=== PATIENT | male | born 1960 | race Caucasian/White ===

== ENCOUNTER 2020-06-04 09:21 | Outpatient (CLI) | payer BC ==
[2020-06-04 11:26] LABS: BASOPHILS # (AUTO) 0.1 /CMM (0.0-0.2); BASOPHILS % (AUTO) 1.1 % (0.0-2.0); EOSINOPHILS % (AUTO) 3.9 % (0.0-6.0); HEMATOCRIT 44 % (39-51); HEMOGLOBIN 14.6 g/dL (13.5-17.5); LYMPHOCYTES # (AUTO) 1.6 /CMM (0.8-4.8); LYMPHOCYTES % (AUTO) 33.4 % (20.0-44.0); MEAN CORPUSCULAR HGB CONC 33 g/dl (31.0-36.0); MEAN CORPUSCULAR VOLUME 89 fL (80-96); MONOCYTES # (AUTO) 0.4 /CMM (0.1-1.30); MONOCYTES % (AUTO) 8.9 % (2.0-12.0); NEUTROPHILS # (AUTO) 2.5 /CMM (1.8-8.9); NEUTROPHILS % (AUTO) 52.7 % (43.0-81.0); PLATELET COUNT (AUTO) 146 /CMM (150-450); RED BLOOD CELL COUNT(AUTO) 4.97 MIL/uL (4.5-6.0); WHITE BLOOD COUNT (AUTO) 4.8 K/uL (4.3-11.0)
[2020-06-04 12:14] LABS: ALBUMIN 3.8 g/dL (3.4-5.0); BILIRUBIN,TOTAL 0.7 mg/dL (0.2-1.0); CALCIUM, SERUM 9.3 mg/dL (8.5-10.1); CREATININE 0.8 mg/dL (0.6-1.3); POTASSIUM 4.1 mmol/L (3.5-5.1); TOTAL PROTEIN, SERUM 7.4 g/dL (6.4-8.2)
[2020-06-04 12:22] LABS: THYROID STIMULATING HORMONE 2.682 uIU/mL (0.358-3.74)
== END 2020-06-04 23:59 | disposition home or self-care (01) ==
LOC: LAB 09:21
PROVIDERS: ATTEND Family Medicine
DX: E78.2 Mixed hyperlipidemia (principal); E03.9 Hypothyroidism, unspecified; R12 Heartburn; Z79.899 Other long term (current) drug therapy
CPT/HCPCS: 36415; 80053-TC; 80061-TC; 82306; 84439-TC; 84443-TC; 84481; 85025-TC

== ENCOUNTER → 2020-06-27 | Outpatient (CLI) | payer BC | END | disposition home or self-care (01) | LOC: RAD 10:16 | PROVIDERS: ATTEND Family Medicine | DX: M17.12 Unilateral primary osteoarthritis, left knee (principal); M25.462 Effusion, left knee; M25.762 Osteophyte, left knee | CPT/HCPCS: 73564-TC ==

== ENCOUNTER 2020-07-01 11:04 | Outpatient (CLI) | payer BC | END 2020-07-01 23:59 | disposition home or self-care (01) | LOC: US 11:04 | PROVIDERS: ATTEND Family Medicine | DX: E04.1 Nontoxic single thyroid nodule (principal) | CPT/HCPCS: 76536-TC ==

== ENCOUNTER 2020-07-23 08:35 | Outpatient (CLI) | payer BC | END 2020-07-23 23:59 | disposition home or self-care (01) | LOC: CARD 08:35 | PROVIDERS: ATTEND Family Medicine | DX: M17.12 Unilateral primary osteoarthritis, left knee (principal) | CPT/HCPCS: 73590-TC; 93971-TC ==

== ENCOUNTER 2020-10-28 09:30 | Outpatient (CLI) | payer BC ==
[2020-10-28 10:28] LABS: BILIRUBIN,URINE NEGATIVE (NEGATIVE); BLOOD, URINE NEGATIVE Ery/uL (NEGATIVE); COLOR,URINE YELLOW (YELLOW); LEUKOCYTE ESTERASE ,URINE NEGATIVE (NEGATIVE); NITRITE, URINE NEGATIVE (NEGATIVE); PH,URINE 6.5 (5.0-8.0); PROTEIN,URINE NEGATIVE (NEGATIVE); UGLUCOSE NEGATIVE (NEGATIVE); UROBILINOGEN,URINE 0.2 EU/dL (0.2)
[2020-10-28 10:36] LABS: BASOPHILS # (AUTO) 0.1 /CMM (0.0-0.2); BASOPHILS % (AUTO) 2.5 % (0.0-2.0); EOSINOPHILS % (AUTO) 4.5 % (0.0-6.0); HEMATOCRIT 47 % (39-51); HEMOGLOBIN 15.6 g/dL (13.5-17.5); LYMPHOCYTES # (AUTO) 1.3 /CMM (0.8-4.8); LYMPHOCYTES % (AUTO) 32.9 % (20.0-44.0); MEAN CORPUSCULAR HGB CONC 33 g/dl (31.0-36.0); MEAN CORPUSCULAR VOLUME 90 fL (80-96); MONOCYTES # (AUTO) 0.4 /CMM (0.1-1.30); MONOCYTES % (AUTO) 9.2 % (2.0-12.0); NEUTROPHILS % (AUTO) 50.9 % (43.0-81.0); PLATELET COUNT (AUTO) 167 /CMM (150-450); RED BLOOD CELL COUNT(AUTO) 5.21 MIL/uL (4.5-6.0); WHITE BLOOD COUNT (AUTO) 3.9 K/uL (4.3-11.0)
[2020-10-28 10:40] LABS: ALBUMIN 3.8 g/dL (3.4-5.0); BILIRUBIN,TOTAL 0.6 mg/dL (0.2-1.0); CREATININE 0.9 mg/dL (0.6-1.3); POTASSIUM 3.8 mmol/L (3.5-5.1); TOTAL PROTEIN, SERUM 7.8 g/dL (6.4-8.2)
[2020-10-28 10:58] LABS: PROSTATE SPECIFIC ANTIGEN SCR 0.7 ng/mL (0.00-4.00); THYROID STIMULATING HORMONE 2.861 uIU/mL (0.358-3.74)
== END 2020-10-28 23:59 | disposition home or self-care (01) ==
LOC: CT 09:30
PROVIDERS: ATTEND Family Medicine
DX: E55.9 Vitamin D deficiency, unspecified (principal); R59.0 Localized enlarged lymph nodes; J92.9 Pleural plaque without asbestos; Z00.01 Encounter for general adult medical examination with abnormal findings; Z79.899 Other long term (current) drug therapy; Z95.0 Presence of cardiac pacemaker
CPT/HCPCS: 36415; 71250-TC; 80053-TC; 80061-TC; 82306; 84153-TC; 84439-TC; 84443-TC; 85025-TC

== ENCOUNTER 2021-04-25 08:37 | Emergency (ER) | payer BC, OTHER ==
[~2021-04-25] VITALS: Ht 182.9 cm; Wt 61.2 kg
[2021-04-25 11:59] VITALS: BP 130/61
== END 2021-04-25 12:00 | disposition home or self-care (01) ==
LOC: ER 08:46
DX: R05 Cough (principal); Z20.822 Contact with and (suspected) exposure to COVID-19; R91.8 Other nonspecific abnormal finding of lung field; I51.7 Cardiomegaly
CPT/HCPCS: 71045; 87426; 99284; C9803

== ENCOUNTER 2021-12-15 10:05 | Outpatient (CLI) | payer BC ==
[2021-12-15 11:28] LABS: CALCIUM, SERUM 8.7 mg/dL (8.5-10.1); CREATININE 0.8 mg/dL (0.6-1.3)
[2021-12-15] MEDS ORDERED: CT SWABBABLE VALVE TRANS SET 1 EA INFUS.SET MC ONE (11:33)
[2021-12-15] MEDS ORDERED: IV NS 0.9% 250 ML IV ONE (11:33)
[2021-12-15] MEDS ORDERED: IOHEXOL-300 100 ML VIAL IV ONE (11:33)
== END 2021-12-15 23:59 | disposition home or self-care (01) ==
LOC: CT 10:05
DX: I25.10 Atherosclerotic heart disease of native coronary artery without angina pectoris (principal); D86.9 Sarcoidosis, unspecified; Z95.0 Presence of cardiac pacemaker
CPT/HCPCS: 36415; 71260; 80048; J7050; Q9967

== ENCOUNTER 2021-12-15 13:30 | Emergency (ER) | payer BC ==
[~2021-12-15] VITALS: Ht 182.9 cm; Wt 73.9 kg
[2021-12-15 13:50] VITALS: BP 115/70
--- NOTE | 2021-12-15 13:50 | NUR ---
LEFT ANKLE/FOOT PAIN STARTED WHILE PLAYING [employer] LAST NIGHT
== END 2021-12-15 15:29 | disposition home or self-care (01) ==
LOC: ER 13:30
DX: S93.692A Other sprain of left foot, initial encounter (principal); Z90.89 Acquired absence of other organs; Z98.890 Other specified postprocedural states; X50.1XXA Overexertion from prolonged static or awkward postures, initial encounter; Y93.68 Activity, volleyball (beach) (court); Y92.39 Other specified sports and athletic area as the place of occurrence of the external cause; Y99.8 Other external cause status
CPT/HCPCS: 73610-TC; 73630-TC

== ENCOUNTER 2022-06-21 10:44 | Outpatient (CLI) | payer BC ==
[2022-06-21] MEDS ORDERED: UREA 10% -AHA 4% CREAM 57 GM TUBE ONE (11:34)
== END 2022-06-21 23:59 | disposition home or self-care (01) ==
LOC: WOU 10:44
PROVIDERS: ATTEND Podiatrist Foot & Ankle Surgery
DX: L60.3 Nail dystrophy (principal); L84 Corns and callosities; R26.2 Difficulty in walking, not elsewhere classified; M79.672 Pain in left foot; M79.671 Pain in right foot; R73.03 Prediabetes; Z87.891 Personal history of nicotine dependence
CPT/HCPCS: G0463

== ENCOUNTER 2023-03-25 11:59 | Outpatient (CLI) | payer BC ==
[2023-03-25 12:42] LABS: BASOPHILS % (AUTO) 0.8 % (0.0-2.0); EOSINOPHILS % (AUTO) 2.7 % (0.0-6.0); HEMATOCRIT 45 % (39-51); HEMOGLOBIN 14.8 g/dL (13.5-17.5); LYMPHOCYTES % (AUTO) 33.2 % (20.0-44.0); MEAN CORPUSCULAR HGB CONC 33 g/dl (31.0-36.0); MEAN CORPUSCULAR VOLUME 88 fL (80-96); MONOCYTES # (AUTO) 0.5 K/uL (0.1-1.30); MONOCYTES % (AUTO) 8.2 % (2.0-12.0); NEUTROPHILS # (AUTO) 3.3 K/uL (1.8-8.9); NEUTROPHILS % (AUTO) 55.1 % (43.0-81.0); PLATELET COUNT (AUTO) 212 K/uL (150-450); RED BLOOD CELL COUNT(AUTO) 5.11 MIL/uL (4.5-6.0)
[2023-03-25 12:43] LABS: BILIRUBIN,URINE NEGATIVE (NEGATIVE); COLOR,URINE YELLOW (YELLOW); LEUKOCYTE ESTERASE ,URINE NEGATIVE (NEGATIVE); NITRITE, URINE NEGATIVE (NEGATIVE); PROTEIN,URINE NEGATIVE (NEGATIVE); UGLUCOSE NEGATIVE (NEGATIVE); UROBILINOGEN,URINE 0.2 EU/dL (0.2)
[2023-03-25 13:23] LABS: BACTERIA,URINE None seen /HPF (None Seen); SQUAMOUS EPITHELIAL CELL,UR None Seen /HPF (None Seen); WBC,URINE NONE SEEN /HPF (0-3)
== END 2023-03-25 23:59 | disposition home or self-care (01) ==
LOC: LAB 11:59
PROVIDERS: ATTEND Surgery
DX: Z01.812 Encounter for preprocedural laboratory examination (principal); Z20.822 Contact with and (suspected) exposure to COVID-19; R31.9 Hematuria, unspecified
CPT/HCPCS: 85025; 87086; 81001; 36415; U0003; C9803

== ENCOUNTER 2023-03-30 06:12 | Day surgery (SDC) | payer BC ==
[2023-03-30] MEDS ORDERED: ANESTHESIA TRAY IN PYXIS 1 EA TRAY MC ONE (06:46)
[2023-03-30 06:55] LABS: BASOPHILS % (AUTO) 0.7 % (0.0-2.0); EOSINOPHILS % (AUTO) 2.9 % (0.0-6.0); HEMATOCRIT 44 % (39-51); HEMOGLOBIN 14.4 g/dL (13.5-17.5); LYMPHOCYTES # (AUTO) 1.3 K/uL (0.8-4.8); LYMPHOCYTES % (AUTO) 24.1 % (20.0-44.0); MEAN CORPUSCULAR HGB CONC 33 g/dl (31.0-36.0); MEAN CORPUSCULAR VOLUME 88 fL (80-96); MONOCYTES # (AUTO) 0.4 K/uL (0.1-1.30); MONOCYTES % (AUTO) 8.1 % (2.0-12.0); NEUTROPHILS # (AUTO) 3.6 K/uL (1.8-8.9); NEUTROPHILS % (AUTO) 64.2 % (43.0-81.0); PLATELET COUNT (AUTO) 197 K/uL (150-450); RED BLOOD CELL COUNT(AUTO) 4.98 MIL/uL (4.5-6.0); WHITE BLOOD COUNT (AUTO) 5.6 K/uL (4.3-11.0)
[2023-03-30 07:48] LABS: ALBUMIN 3.4 g/dL (3.4-5.0); BILIRUBIN,TOTAL 0.6 mg/dL (0.2-1.0); CALCIUM, SERUM 9.2 mg/dL (8.5-10.1); CREATININE 0.8 mg/dL (0.6-1.3); POTASSIUM 4.2 mmol/L (3.5-5.1); TOTAL PROTEIN, SERUM 7.2 g/dL (6.4-8.2)
== END 2023-03-30 09:45 | disposition home or self-care (01) ==
LOC: DS 06:12
PROVIDERS: ATTEND Surgery
DX: R19.4 Change in bowel habit (principal); K31.7 Polyp of stomach and duodenum; K44.9 Diaphragmatic hernia without obstruction or gangrene; K21.9 Gastro-esophageal reflux disease without esophagitis; Z98.890 Other specified postprocedural states; Z79.899 Other long term (current) drug therapy
CPT/HCPCS: 45378; 43239; 71045; 88342; 85025; 36415; 80053; 88312; 88305; 93005; J2704; J3490

== ENCOUNTER 2023-04-26 13:02 | Outpatient (CLI) | payer BC ==
[2023-04-26 13:43] LABS: CALCIUM, SERUM 9.2 mg/dL (8.5-10.1); CREATININE 0.8 mg/dL (0.6-1.3); POTASSIUM 4.2 mmol/L (3.5-5.1)
== END 2023-04-26 23:59 | disposition home or self-care (01) ==
LOC: LAB 13:02
PROVIDERS: ATTEND Family Medicine
DX: R31.9 Hematuria, unspecified (principal)
CPT/HCPCS: 36415; 80048-TC

== ENCOUNTER 2023-04-29 08:59 | Outpatient (CLI) | payer BC ==
[2023-04-29] MEDS ORDERED: IOHEXOL-300 100 ML VIAL IV ONE (09:17)
[2023-04-29] MEDS ORDERED: IV NS 0.9% 250 ML IV ONE (09:17)
== END 2023-04-29 23:59 | disposition home or self-care (01) ==
LOC: CT 08:59
PROVIDERS: ATTEND Family Medicine
DX: N28.1 Cyst of kidney, acquired (principal); R31.9 Hematuria, unspecified; M51.37 Other intervertebral disc degeneration, lumbosacral region; I70.0 Atherosclerosis of aorta; R10.9 Unspecified abdominal pain
CPT/HCPCS: 74177; J7050; Q9967

== ENCOUNTER 2023-12-29 12:46 | Emergency (ER) | payer BC ==
[~2023-12-29] VITALS: Ht 182.9 cm; Wt 74.8 kg
[2023-12-29 13:24] LABS: BASOPHILS % (AUTO) 0.7 % (0.0-2.0); EOSINOPHILS # (AUTO) 0.2 K/uL (0.0-0.7); HEMATOCRIT 44 % (39-51); HEMOGLOBIN 14.7 g/dL (13.5-17.5); LYMPHOCYTES # (AUTO) 1.6 K/uL (0.8-4.8); LYMPHOCYTES % (AUTO) 30.7 % (20.0-44.0); MEAN CORPUSCULAR HEMOGLOBIN 30 PG (26.0-33.0); MEAN CORPUSCULAR HGB CONC 34 g/dl (31.0-36.0); MEAN CORPUSCULAR VOLUME 89 fL (80-96); MONOCYTES # (AUTO) 0.5 K/uL (0.1-1.30); MONOCYTES % (AUTO) 9.5 % (2.0-12.0); NEUTROPHILS # (AUTO) 2.8 K/uL (1.8-8.9); NEUTROPHILS % (AUTO) 55.1 % (43.0-81.0); PLATELET COUNT (AUTO) 167 K/uL (150-450); RED CELL DISTRIBUTION WIDTH 13.2 % (11.5-15.0); WHITE BLOOD COUNT (AUTO) 5.1 K/uL (4.3-11.0)
[2023-12-29 13:35] LABS: CALCIUM, SERUM 9.6 mg/dL (8.5-10.1); CARBON DIOXIDE 27 mmol/L (21-32); CHLORIDE 103 mmol/L (98-107); CREATININE 0.9 mg/dL (0.6-1.3); GLUCOSE 56 mg/dL (74-106); POTASSIUM 3.8 mmol/L (3.5-5.1); SODIUM SERUM 139 mmol/L (136-145); UREA NITROGEN, BLOOD 16 mg/dL (7-18)
[2023-12-29] MEDS ORDERED: LIDOCAINE VISCOUS 2% UD 15 ML UDC ONE (13:39)
[2023-12-29] MEDS ORDERED: MAG HYDROX/AL HYDROX/SIMETH 30 ML UDC ONE (13:39)
[2023-12-29] MEDS ORDERED: PANTOPRAZOLE 40 MG VIAL ONE (13:39)
[2023-12-29 13:47] LABS: ALANINE AMINOTRANSFERASE 26 U/L (12-78); ALBUMIN 3.7 g/dL (3.4-5.0); ALKALINE PHOSPHATASE 97 U/L (46-116); ASPARTATE AMINOTRANSFERASE 19 U/L (15-37); BILIRUBIN,DIRECT 0.1 mg/dL (0.0-0.2); BILIRUBIN,TOTAL 0.4 mg/dL (0.2-1.0); LIPASE 39 U/L (16-77); TOTAL PROTEIN, SERUM 7.7 g/dL (6.4-8.2)
[2023-12-29] MEDS: LIDOCAINE VISCOUS 2% UD 15 ML UDC MM ONE (13:50)
[2023-12-29] MEDS: MAG HYDROX/AL HYDROX/SIMETH 30 ML UDC PO ONE (13:50)
[2023-12-29] MEDS: PANTOPRAZOLE 40 MG VIAL IV ONE (13:51)
[2023-12-29 15:24] VITALS: TEMP 98
[2023-12-29 16:10] VITALS: BP 123/82; O2SAT 98
== END 2023-12-29 16:11 | disposition home or self-care (01) ==
LOC: ER 13:04
DX: R10.13 Epigastric pain (principal); Z98.890 Other specified postprocedural states
CPT/HCPCS: 99285; 96374; 76705; 71045; 85025; 80048; 83690; 80076; 36415; 84484; C9113

== ENCOUNTER 2024-04-30 11:55 | Inpatient (IN) | payer BC ==
[~2024-04-30] VITALS: Ht 180.3 cm; Wt 73.5 kg
[2024-04-30] MEDS ORDERED: ATOR10TA PO (12:22)
[2024-04-30] MEDS ORDERED: LEVO75TA7 PO (12:22)
[2024-04-30] MEDS ORDERED: LEVO50TA8 PO (12:22)
[2024-04-30 12:31] LABS: BASOPHILS % (AUTO) 0.7 % (0.0-2.0); EOSINOPHILS # (AUTO) 0.1 K/uL (0.0-0.7); EOSINOPHILS % (AUTO) 2.1 % (0.0-6.0); HEMATOCRIT 42 % (39-51); LYMPHOCYTES # (AUTO) 1.5 K/uL (0.8-4.8); LYMPHOCYTES % (AUTO) 23.6 % (20.0-44.0); MEAN CORPUSCULAR HEMOGLOBIN 29 PG (26.0-33.0); MEAN CORPUSCULAR HGB CONC 33 g/dl (31.0-36.0); MEAN CORPUSCULAR VOLUME 87 fL (80-96); MONOCYTES # (AUTO) 0.5 K/uL (0.1-1.30); MONOCYTES % (AUTO) 8.7 % (2.0-12.0); NEUTROPHILS # (AUTO) 4.1 K/uL (1.8-8.9); NEUTROPHILS % (AUTO) 64.9 % (43.0-81.0); PLATELET COUNT (AUTO) 177 K/uL (150-450); RED BLOOD CELL COUNT(AUTO) 4.81 MIL/uL (4.5-6.0); RED CELL DISTRIBUTION WIDTH 13.4 % (11.5-15.0); WHITE BLOOD COUNT (AUTO) 6.3 K/uL (4.3-11.0)
[2024-04-30 12:39] LABS: CREATININE 0.9 mg/dL (0.6-1.3); POTASSIUM 4.3 mmol/L (3.5-5.1)
[2024-04-30 12:44] LABS: CALCIUM, SERUM 9.2 mg/dL (8.5-10.1)
[2024-04-30 14:30] VITALS: BP 142/91; TEMP 97.2; O2SAT 98
[2024-04-30] MEDS ORDERED: ONDANSETRON HCL/PF 4 MG/2 ML VIAL IVP PRN (15:00)
[2024-04-30] MEDS ORDERED: Z GUARD REMEDY 4 OZ OINT TP PRN (15:00)
[2024-04-30] MEDS ORDERED: LEVOTHYROXINE SODIUM 75 MCG TABLET PO SCH (15:00)
[2024-04-30 16:00] VITALS: BP 140/91; TEMP 97.9; O2SAT 97
[2024-04-30] MEDS: ACETAMINOPHEN 325 MG TABLET PO PRN (17:08)
[2024-04-30 20:00] VITALS: BP 105/65; TEMP 97.9; O2SAT 100
[2024-04-30] MEDS: ATORVASTATIN 10 MG TABLET PO SCH (21:04)
[2024-05-01] VITALS: BP 122/72; TEMP 97.7; O2SAT 100
[2024-05-01 04:00] VITALS: BP 121/85; TEMP 97.6; O2SAT 96
[2024-05-01 06:41] LABS: INR 1.03 (0.91-1.10); PROTHROMBIN TIME 10.9 SECS (9.2-11.1)
[2024-05-01] MEDS ORDERED: ANESTHESIA TRAY IN PYXIS 1 EA TRAY MC ONE (06:53)
[2024-05-01] MEDS ORDERED: LIDOCAINE 1% INJ 50 ML MDV IJ ONE (06:53)
[2024-05-01] MEDS: PANTOPRAZOLE 40 MG TABLET.DR PO SCH (07:30)
[2024-05-01 07:58] VITALS: BP 102/75; TEMP 97.9; O2SAT 100
[2024-05-01] MEDS: LEVOTHYROXINE SODIUM 75 MCG TABLET PO SCH (09:15)
[2024-05-01 12:00] VITALS: BP 113/73; TEMP 98.1; O2SAT 97
[2024-05-01] MEDS ORDERED: NAPR-1009 PO (12:35)
[2024-05-01] MEDS ORDERED: AMOX-427 PO (12:35)
[2024-05-01 16:22] VITALS: BP 116/78; TEMP 97.9; O2SAT 97
== END 2024-05-01 19:39 | disposition home or self-care (01) | DRG 259 ==
LOC: ER 12:18 → TELE 13:31
PROVIDERS: ADMIT Nurse Practitioner Acute Care; ATTEND Nurse Practitioner Acute Care
PROC: 0JH606Z Insertion of Pacemaker, Dual Chamber into Chest Subcutaneous Tissue and Fascia, Open Approach (ICD-10-PCS; 2024-04-30)
PROC: 0JPT0PZ Removal of Cardiac Rhythm Related Device from Trunk Subcutaneous Tissue and Fascia, Open Approach (ICD-10-PCS; principal; 2024-05-01)
DX: Z45.018 Encounter for adjustment and management of other part of cardiac pacemaker (principal); E03.9 Hypothyroidism, unspecified; E78.5 Hyperlipidemia, unspecified; K02.9 Dental caries, unspecified; K05.10 Chronic gingivitis, plaque induced; I10 Essential (primary) hypertension; K11.20 Sialoadenitis, unspecified
CPT/HCPCS: 36415; 70486-TC; 71045-TC; 80048-TC; 85025-TC; 85610-TC; 85730-TC; 86850-TC; C1785; G0378; J0461; J0690; J2704; J3490

== ENCOUNTER 2024-06-18 21:25 | Inpatient (IN) | payer BC ==
[~2024-06-18] VITALS: Ht 182.9 cm; Wt 77.1 kg
[~2024-06-18 21:25] MED LIST: AMOX-427 PO; ATOR10TA PO; LEVO50TA8 PO; LEVO75TA7 PO; NAPR-1009 PO
[2024-06-18 23:00] LABS: BASOPHILS % (AUTO) 0.5 % (0.0-2.0); EOSINOPHILS # (AUTO) 0.2 K/uL (0.0-0.7); EOSINOPHILS % (AUTO) 2.7 % (0.0-6.0); HEMATOCRIT 38 % (39-51); LYMPHOCYTES # (AUTO) 1.7 K/uL (0.8-4.8); LYMPHOCYTES % (AUTO) 23.1 % (20.0-44.0); MEAN CORPUSCULAR HEMOGLOBIN 30 PG (26.0-33.0); MEAN CORPUSCULAR HGB CONC 34 g/dl (31.0-36.0); MEAN CORPUSCULAR VOLUME 88 fL (80-96); MONOCYTES # (AUTO) 0.6 K/uL (0.1-1.30); MONOCYTES % (AUTO) 8.3 % (2.0-12.0); NEUTROPHILS # (AUTO) 4.8 K/uL (1.8-8.9); NEUTROPHILS % (AUTO) 65.4 % (43.0-81.0); PLATELET COUNT (AUTO) 153 K/uL (150-450); RED BLOOD CELL COUNT(AUTO) 4.33 MIL/uL (4.5-6.0); RED CELL DISTRIBUTION WIDTH 13.5 % (11.5-15.0); WHITE BLOOD COUNT (AUTO) 7.3 K/uL (4.3-11.0)
[2024-06-18 23:17] LABS: CALCIUM, SERUM 8.6 mg/dL (8.5-10.1); CREATININE 0.9 mg/dL (0.6-1.3); POTASSIUM 3.7 mmol/L (3.5-5.1)
[2024-06-18 23:29] LABS: ALBUMIN 2.9 g/dL (3.4-5.0); BILIRUBIN,TOTAL 0.3 mg/dL (0.2-1.0); TOTAL PROTEIN, SERUM 6.7 g/dL (6.4-8.2)
[2024-06-18 23:33] LABS: LACTIC ACID 1.2 mmol/L (0.4-2.0)
[2024-06-19] MEDS ORDERED: CEFTRIAXONE 1GM BAG (ER ONLY) 50 ML IV ONE (01:42)
[2024-06-19] MEDS: CEFTRIAXONE 1 G in IV D5W 50 ML IV ONE (01:48)
[2024-06-19 02:04] VITALS: O2SAT 99
[2024-06-19 03:00] VITALS: BP 126/83; TEMP 98.4; O2SAT 98
[2024-06-19] MEDS ORDERED: ZOLPIDEM TARTRATE 5 MG TABLET PO PRN (03:00)
[2024-06-19] MEDS ORDERED: ONDANSETRON HCL/PF 4 MG/2 ML VIAL IVP PRN (03:00)
[2024-06-19] MEDS ORDERED: MAG HYDROX/AL HYDROX/SIMETH 30 ML UDC PO PRN (03:00)
[2024-06-19] MEDS ORDERED: MAGNESIUM HYDROXIDE 30 ML UDC PO PRN (03:00)
[2024-06-19] MEDS ORDERED: Z GUARD REMEDY 4 OZ OINT TP PRN (03:00)
[2024-06-19 07:00] LABS: BASOPHILS % (AUTO) 0.6 % (0.0-2.0); EOSINOPHILS # (AUTO) 0.2 K/uL (0.0-0.7); EOSINOPHILS % (AUTO) 2.3 % (0.0-6.0); HEMATOCRIT 40 % (39-51); HEMOGLOBIN 13.4 g/dL (13.5-17.5); LYMPHOCYTES # (AUTO) 1.5 K/uL (0.8-4.8); LYMPHOCYTES % (AUTO) 22.1 % (20.0-44.0); MEAN CORPUSCULAR HEMOGLOBIN 30 PG (26.0-33.0); MEAN CORPUSCULAR HGB CONC 34 g/dl (31.0-36.0); MEAN CORPUSCULAR VOLUME 88 fL (80-96); MONOCYTES # (AUTO) 0.6 K/uL (0.1-1.30); MONOCYTES % (AUTO) 8.4 % (2.0-12.0); NEUTROPHILS # (AUTO) 4.7 K/uL (1.8-8.9); NEUTROPHILS % (AUTO) 66.6 % (43.0-81.0); PLATELET COUNT (AUTO) 154 K/uL (150-450); RED BLOOD CELL COUNT(AUTO) 4.54 MIL/uL (4.5-6.0); RED CELL DISTRIBUTION WIDTH 13.1 % (11.5-15.0)
[2024-06-19 07:27] LABS: ALBUMIN 2.8 g/dL (3.4-5.0); CALCIUM, SERUM 8.8 mg/dL (8.5-10.1); CREATININE 0.8 mg/dL (0.6-1.3); MAGNESIUM 2.1 mg/dL (1.8-2.4); PHOSPHORUS 3.3 mg/dL (2.5-4.9); POTASSIUM 3.9 mmol/L (3.5-5.1)
[2024-06-19] MEDS ORDERED: LEVOTHYROXINE SODIUM 75 MCG TABLET PO SCH (07:30)
[2024-06-19] MEDS: PANTOPRAZOLE 40 MG TABLET.DR PO SCH (08:10)
[2024-06-19] MEDS ORDERED: CHOL100053 PO (08:52)
[2024-06-19] MEDS ORDERED: OMEG1CAP74 PO (08:52)
[2024-06-19] MEDS ORDERED: VALA100026 PO (08:52)
[2024-06-19 10:40] VITALS: BP 117/71; TEMP 98.4; O2SAT 100
[2024-06-19] MEDS: LEVOTHYROXINE SODIUM 75 MCG TABLET PO SCH (15:18)
[2024-06-19 15:55] VITALS: BP 112/67; TEMP 98; O2SAT 97
[2024-06-19] MEDS ORDERED: IOHEXOL-300 100 ML VIAL IV ONE (15:57)
[2024-06-19] MEDS ORDERED: IV NS 0.9% 250 ML IV ONE (15:58)
[2024-06-19 20:50] VITALS: BP 109/72; TEMP 99.9; O2SAT 96
[2024-06-20] MEDS: ACETAMINOPHEN 325 MG TABLET PO PRN (01:51)
[2024-06-20 07:08] LABS: BASOPHILS % (AUTO) 0.6 % (0.0-2.0); EOSINOPHILS # (AUTO) 0.2 K/uL (0.0-0.7); EOSINOPHILS % (AUTO) 2.9 % (0.0-6.0); HEMATOCRIT 44 % (39-51); HEMOGLOBIN 14.6 g/dL (13.5-17.5); LYMPHOCYTES # (AUTO) 2.9 K/uL (0.8-4.8); LYMPHOCYTES % (AUTO) 35.6 % (20.0-44.0); MEAN CORPUSCULAR HEMOGLOBIN 30 PG (26.0-33.0); MEAN CORPUSCULAR HGB CONC 33 g/dl (31.0-36.0); MEAN CORPUSCULAR VOLUME 89 fL (80-96); MONOCYTES # (AUTO) 0.8 K/uL (0.1-1.30); MONOCYTES % (AUTO) 10.2 % (2.0-12.0); NEUTROPHILS # (AUTO) 4.1 K/uL (1.8-8.9); NEUTROPHILS % (AUTO) 50.7 % (43.0-81.0); PLATELET COUNT (AUTO) 164 K/uL (150-450); RED BLOOD CELL COUNT(AUTO) 4.93 MIL/uL (4.5-6.0); RED CELL DISTRIBUTION WIDTH 13.4 % (11.5-15.0)
[2024-06-20 07:49] LABS: CALCIUM, SERUM 9.2 mg/dL (8.5-10.1); CREATININE 0.8 mg/dL (0.6-1.3); POTASSIUM 4.5 mmol/L (3.5-5.1)
[2024-06-20] MEDS: LEVOTHYROXINE SODIUM 50 MCG TABLET PO SCH (07:58)
[2024-06-20 08:00] VITALS: BP 111/77; TEMP 97.7; O2SAT 97
[2024-06-20] MEDS: CEFTRIAXONE 1 G in IV D5W 50 ML IV SCH (10:08)
[2024-06-20 16:00] VITALS: BP 129/80; TEMP 98.6; O2SAT 100
[2024-06-20 20:00] VITALS: BP 116/70; TEMP 98.4; O2SAT 97
[2024-06-21 08:00] VITALS: BP 112/74; TEMP 98.4; O2SAT 97
[2024-06-21] MEDS ORDERED: DOXY100C2 PO (09:31)
== END 2024-06-21 12:22 | disposition home or self-care (01) | DRG 314 ==
LOC: ER 21:25 → MED 06-19 01:20
PROVIDERS: ADMIT Internal Medicine; ATTEND Internal Medicine
DX: T82.7XXA Infection and inflammatory reaction due to other cardiac and vascular devices, implants and grafts, initial encounter (principal); E43 Unspecified severe protein-calorie malnutrition; L03.313 Cellulitis of chest wall; K21.9 Gastro-esophageal reflux disease without esophagitis; I48.91 Unspecified atrial fibrillation; Y83.1 Surgical operation with implant of artificial internal device as the cause of abnormal reaction of the patient, or of later complication, without mention of misadventure at the time of the procedure; E88.09 Other disorders of plasma-protein metabolism, not elsewhere classified; E03.9 Hypothyroidism, unspecified; Z68.23 Body mass index [BMI] 23.0-23.9, adult; Y92.009 Unspecified place in unspecified non-institutional (private) residence as the place of occurrence of the external cause; I10 Essential (primary) hypertension
CPT/HCPCS: 36415; 71045-TC; 71260-TC; 80048-TC; 80053-TC; 82040-TC; 83605-TC; 83735-TC; 83880; 84100-TC; 84484-TC; 85025-TC; 87040-TC; A4223; G0378; J0696; J7050; J7060; Q9967

== ENCOUNTER 2024-07-20 11:05 | Outpatient (CLI) | payer BC ==
[~2024-07-20 11:05] MED LIST changes: -AMOX-427 PO; +CHOL100053 PO; +DOXY100C2 PO; -NAPR-1009 PO; +OMEG1CAP74 PO; +VALA100026 PO
== END 2024-07-20 23:59 | disposition home or self-care (01) ==
LOC: RAD 11:05
PROVIDERS: ATTEND Family Medicine
DX: M25.511 Pain in right shoulder (principal)
CPT/HCPCS: 73030-TC